=== PATIENT | female | born 1935 | race Caucasian/White ===

== ENCOUNTER → 2016-10-17 | Outpatient (CLI) | payer MEDICARE ==
[~2016-10-17] MED LIST: NORVASC5 MG PO; PAIN PILL PO; ROCALTROL0.25 MCG PO
== END | disposition home or self-care (01) ==
LOC: CDC 11:01
DX: R94.31 Abnormal electrocardiogram [ECG] [EKG] (principal)
CPT/HCPCS: 93000

== ENCOUNTER 2016-10-20 11:16 | Day surgery (SDC) | payer OTHER, MEDICARE ==
[~2016-10-20] VITALS: Ht 162.6 cm; Wt 63.5 kg
[2016-10-20 12:10] VITALS: BP 198/84
[2016-10-20 12:38] LABS: HEMATOCRIT 32.2 % (36.0-46.0); MCV 84.5 FL (83-99); MEAN PLAT.VOLUME 8.8 uM^3 (9.5-12.4); PLATELET COUNT 178 K/uL (156-360); RBC DIS.WIDTH-SD 43.2 % (39-53); RED BLOOD COUNT 3.81 M/uL (3.80-5.20); WHITE BLOOD COUNT 2.4 K/uL (4.1-10.2)
[2016-10-20 13:03] LABS: ANION GAP 12 MEQ/L (2-14); CHLORIDE 110 MEQ/L (99-109); POTASSIUM 3.5 MEQ/L (3.7-5.4); SAMPLE HEMOLYSIS CHECK 0; SAMPLE ICTERIC CHECK 0; SAMPLE LIPEMIA CHECK 0; SODIUM 143 MEQ/L (136-147)
[2016-10-20 13:09] LABS: GFR ESTIMATE (CALCULATED) 17 mL/min/; GLUCOSE 71 mg/dL (70-99); UREA NITROGEN (BUN) 58 mg/dL (9-23)
[2016-10-20 15:52] VITALS: BP 153/68
[2016-10-20 17:14] VITALS: BP 169/71
== END 2016-10-20 17:17 | disposition home or self-care (01) ==
LOC: SDC 11:16
PROVIDERS: Surgery
PROC: 03180ZD Bypass Left Brachial Artery to Upper Arm Vein, Open Approach (ICD-10-PCS; principal; 2016-10-20)
DX: I12.9 Hypertensive chronic kidney disease with stage 1 through stage 4 chronic kidney disease, or unspecified chronic kidney disease (principal); N18.9 Chronic kidney disease, unspecified; Z82.49 Family history of ischemic heart disease and other diseases of the circulatory system; Z83.3 Family history of diabetes mellitus; Z87.891 Personal history of nicotine dependence
CPT/HCPCS: 80048; 85027; J0330; J0690; J1644; J2405; J2720; J3010

== ENCOUNTER 2016-12-04 07:54 | Day surgery (SDC) | payer OTHER, MEDICARE ==
[~2016-12-04] VITALS: Ht 162.6 cm; Wt 64.0 kg
[~2016-12-04 07:54] MED LIST changes: +TYLENOL REGULA325 MG PO
== END 2016-12-04 10:15 | disposition home or self-care (01) ==
LOC: CATH 07:54
DX: T82.858A Stenosis of other vascular prosthetic devices, implants and grafts, initial encounter (principal); I12.0 Hypertensive chronic kidney disease with stage 5 chronic kidney disease or end stage renal disease; N18.6 End stage renal disease; Z99.2 Dependence on renal dialysis; Z87.891 Personal history of nicotine dependence
CPT/HCPCS: C1725; C1769; C1894; J1644; J2250; J3010

== ENCOUNTER 2017-01-30 06:47 | Day surgery (SDC) | payer OTHER, MEDICARE ==
[~2017-01-30] VITALS: Ht 161.3 cm; Wt 63.5 kg
[2017-01-30 08:46] LABS: METH RESISTANT S AUREUS PCR NEGATIVE (NEGATIVE)
[2017-01-30 08:49] LABS: PROBE CHECK PASS; SPECIMEN PROCESSING CONTROL PASS
== END 2017-01-30 09:38 | disposition home or self-care (01) ==
LOC: CATH 06:47
PROVIDERS: Surgery
PROC: 057Y3ZZ Dilation of Upper Vein, Percutaneous Approach (ICD-10-PCS; principal; 2017-01-30)
DX: T82.858A Stenosis of other vascular prosthetic devices, implants and grafts, initial encounter (principal); I12.0 Hypertensive chronic kidney disease with stage 5 chronic kidney disease or end stage renal disease; N18.6 End stage renal disease; Z99.2 Dependence on renal dialysis; Z87.891 Personal history of nicotine dependence
CPT/HCPCS: 87641; C1725; C1769; C1894; J1644; J2250; J3010

== ENCOUNTER 2017-05-31 06:44 | Day surgery (SDC) | payer OTHER, MEDICARE ==
[~2017-05-31] VITALS: Ht 162.6 cm; Wt 56.7 kg
[2017-05-31 08:50] LABS: METH RESISTANT S AUREUS PCR NEGATIVE (NEGATIVE); PROBE CHECK PASS; SPECIMEN PROCESSING CONTROL PASS
[2017-05-31 12:47] VITALS: BP 193/82
[2017-05-31 13:04] VITALS: BP 132/60
[2017-05-31 14:50] VITALS: BP 142/66
[2017-05-31 19:04] VITALS: BP 140/70
[2017-05-31 23:00] VITALS: BP 165/70
[2017-06-01 03:20] VITALS: BP 150/62
[2017-06-01 07:30] VITALS: BP 200/68
[2017-06-01 08:00] VITALS: BP 214/72
[2017-06-01 08:26] VITALS: BP 182/72
[2017-06-01 09:33] LABS: TROP-I INTERPRETATION NEGATIVE; TROPONIN-I 0.02 ng/mL (0.0-0.30)
[2017-06-01 10:00] VITALS: BP 122/62
[2017-06-01 12:20] VITALS: BP 158/65
== END 2017-06-01 17:28 | disposition home or self-care (01) ==
LOC: CATH 06:44 → 2SOUTH 09:00 → 2EASTP 09:00 → 2SOUTH 09:00 → ENRESERV 09:07 → 2EASTP 12:30
PROVIDERS: Surgery
DX: T82.858A Stenosis of other vascular prosthetic devices, implants and grafts, initial encounter (principal); I97.42 Intraoperative hemorrhage and hematoma of a circulatory system organ or structure complicating other procedure; I12.0 Hypertensive chronic kidney disease with stage 5 chronic kidney disease or end stage renal disease; N18.6 End stage renal disease; Z99.2 Dependence on renal dialysis; Z87.891 Personal history of nicotine dependence; R07.9 Chest pain, unspecified
CPT/HCPCS: 84484; 87641; 93005; C1725; C1769; C1874; C1887; C1894; G0378; J0360; J1170; J1644; J2250; J2405; J2720; J3010; J7030

== ENCOUNTER 2017-06-19 06:52 | Day surgery (SDC) | payer OTHER, MEDICARE ==
[~2017-06-19] VITALS: Ht 160 cm; Wt 68.0 kg
[2017-06-19 12:39] LABS: ANION GAP 8 MEQ/L (2-14); CHLORIDE 114 MEQ/L (99-109); GFR ESTIMATE (CALCULATED) 18 mL/min/; GLUCOSE 87 mg/dL (70-99); POTASSIUM 4.4 MEQ/L (3.7-5.4); SAMPLE HEMOLYSIS CHECK 0; SAMPLE ICTERIC CHECK 0; SAMPLE LIPEMIA CHECK 0; SODIUM 146 MEQ/L (136-147); UREA NITROGEN (BUN) 54 mg/dL (9-23)
[2017-06-19 12:57] LABS: TROP-I INTERPRETATION NEGATIVE; TROPONIN-I < 0.01 ng/mL (0.0-0.30)
== END 2017-06-19 13:27 | disposition home or self-care (01) ==
LOC: CATH 06:52
PROVIDERS: Surgery
DX: T82.858A Stenosis of other vascular prosthetic devices, implants and grafts, initial encounter (principal); I12.0 Hypertensive chronic kidney disease with stage 5 chronic kidney disease or end stage renal disease; N18.6 End stage renal disease; Z99.2 Dependence on renal dialysis; Z87.891 Personal history of nicotine dependence
CPT/HCPCS: 80048; 84484; 93005; C1725; C1769; C1874; C1887; C1894; J0461; J1644; J2250; J2720; J3010; S0020